=== PATIENT | male | born 1985 | race African-American/Black ===

== ENCOUNTER 2023-09-04 19:05 | Emergency (ER) | payer SELFPAY ==
[2023-09-04] MEDS ORDERED: Lidocaine 1% w/Epinephrine 1:100K 20 ML VIAL ONE (19:26)
== END 2023-09-04 19:57 | disposition home or self-care (01) ==
LOC: ERS 19:05
DX: L72.0 Epidermal cyst (principal)
CPT/HCPCS: 10060

== ENCOUNTER 2023-12-13 19:37 | Emergency (ER) | payer SELFPAY ==
[2023-12-13 23:55] LABS: Chlam.trachomatis by PCR,Urine Not Detected (NotDetected); GC N.gonorrhoeae PCR,UrineVOID Not Detected (NotDetected)
== END 2023-12-13 20:37 | disposition home or self-care (01) ==
LOC: ERS 19:37
DX: L72.3 Sebaceous cyst (principal); Z20.2 Contact with and (suspected) exposure to infections with a predominantly sexual mode of transmission; F17.210 Nicotine dependence, cigarettes, uncomplicated
CPT/HCPCS: 87491; 87591; 99283

== ENCOUNTER 2024-04-13 17:04 | Emergency (ER) | payer SELFPAY ==
[2024-04-13] MEDS ORDERED: Meclizine HCl 25 MG TAB ONE (18:36)
[2024-04-13] MEDS ORDERED: Ondansetron ODT 4 MG TAB ONE (18:36)
[2024-04-13 19:30] LABS: #Basophils 0.05 10x3/uL (0.0-0.2); %Basophils 0.3 % (0.0-1.0); %Eosinophils 1.4 % (0.0-10.0); %Lymphocytes 9.6 % (21.0-51.0); %Monocytes 11.6 % (0.0-10.0); %Neutrophils 76.7 % (42.0-75.0); Hematocrit 49.3 % (42.0-52.0); Hemoglobin 15.8 g/dL (14.0-18.0); Mean Corpuscular Volume 81.1 fL (78.0-98.0); Mean Platelet Volume 9.9 fL (7.4-10.4); Platelet Count 350 10x3/uL (130-400); RBC Distribution Width 15.7 % (11.5-14.5); Red Blood Cell (RBC) Count 6.08 mill/uL (4.70-6.10)
[2024-04-13 19:44] LABS: ALT (SGPT) 23 U/L (8-55); AST (SGOT) 19 U/L (5-34); Albumin 3.4 g/dL (3.5-5.0); Alkaline Phosphatase 100 U/L (40-110); Anion Gap 14 mmol/L (10-20); BUN (Urea Nitrogen) 13 mg/dL (8.9-20.6); Bilirubin, Total 0.6 mg/dL (0.2-1.2); Calc. Creatinine Clearance 0 mL/min (70-130); Calcium 9.7 mg/dL (7.8-10.44); Carbon Dioxide 24 mmol/L (22-29); Chloride 105 mmol/L (98-107); Estimated GFR 71; Globulin 4.1 g/dL (2.4-3.5); Glucose 117 mg/dL (70-105); Potassium 3.7 mmol/L (3.5-5.1); Protein, Total 7.5 g/dL (6.0-8.3); Sodium 139 mmol/L (136-145)
[2024-04-13] MEDS ORDERED: cefTRIAXone (ROCEPHIN) 1 GM VIAL ONE (20:11)
[2024-04-13] MEDS ORDERED: Lidocaine 1% MPF 2 ML VIAL ONE (20:11)
== END 2024-04-13 20:32 | disposition home or self-care (01) ==
LOC: ERS 17:04
DX: J18.9 Pneumonia, unspecified organism (principal); F17.210 Nicotine dependence, cigarettes, uncomplicated
CPT/HCPCS: 36415; 71046; 80053; 85025; 87428; 96372; J0696; Q0162